=== PATIENT | female | born 2005 | race Caucasian/White ===

== ENCOUNTER 2024-04-30 19:11 | Emergency (ER) | payer SELFPAY ==
[~2024-04-30] VITALS: Ht 172.7 cm; Wt 75.5 kg
[2024-04-30 19:14] VITALS: BP 107/76; PULSE 63; O2SAT 99
[2024-04-30 20:34] LABS: STREP A SCREEN NEGATIVE (Neg)
[2024-04-30] MEDS ORDERED: PRED20TA PO (21:23)
[2024-04-30] MEDS ORDERED: ALBU8HFA INH (21:23)
[2024-04-30] MEDS: predniSONE 20 mg tablet PO ONE (21:34)
[2024-04-30 21:39] VITALS: RESP 16; TEMP 98.3
== END 2024-04-30 21:41 | disposition home or self-care (01) ==
LOC: ER 19:12
DX: J06.9 Acute upper respiratory infection, unspecified (principal); J45.909 Unspecified asthma, uncomplicated; Z20.822 Contact with and (suspected) exposure to COVID-19
CPT/HCPCS: 36415; 71045; 87081; 87502; 87503; 87811; 87880; 99284; J7512